=== PATIENT | female | born 1955 | race Caucasian/White ===

== ENCOUNTER 2017-11-15 10:21 | Emergency (ER) | payer BC ==
[2017-11-15 11:06] VITALS: BP 140/87
--- NOTE | 2017-11-15 11:40 | RAD ---
HISTORY: RIGHT FOOT PAIN COMPARISONS: None VIEWS: 3, Frontal, lateral, and oblique views of the right foot FINDINGS: BONE DENSITY: Normal. BONES: There is no displaced fracture. There are plantar and posterior calcaneal enthesophytes. 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 ALIGNMENT: There is no dislocation. SOFT TISSUES: Unremarkable. OTHER FINDINGS: None. IMPRESSION: DEGENERATIVE CHANGES. NO ACUTE OSSEOUS INJURY. IF SYMPTOMS PERSIST, RECOMMEND REPEAT IMAGING.
--- NOTE | 2017-11-15 11:58 | UC ---
Lower Extremity/Ankle HPI - HPI Summary HPI Summary: RIGHT FOOT PAIN X 3 DAYS LOCATED ON TOP THE RIGHT FOOT, NO KNOWN INJURY PAIN IS SHARP , 6 OUT OF 10 , NO RADIATION , WORSE WITH WALKING, BETTER WITH REST + SWELLING, NO REDNESS, - History of Current Complaint Chief Complaint: UCLowerExtremity Stated Complaint: RIGHT FOOT PAIN Time Seen by Provider: 11/15/17 11:08 Hx Obtained From: Patient Onset/Duration: Gradual Onset, Lasting Days - 3, Still Present Severity Initially: Moderate Severity Currently: Moderate Pain Intensity: 6 Aggravating Factor(s): Standing, Ambulation Alleviating Factor(s): Rest, Elevation, Ice Able to Bear Weight: Yes - Allergies/Home Medications Allergies/Adverse Reactions: Allergies Allergy/AdvReac Type Severity Reaction Status Date / Time ibuprofen Allergy Severe Rash Verified 11/15/17 10:50 Home Medications: Home Medications Acetaminophen [Tylenol Extra Strength] 2 tab BID 11/15/17 [History Confirmed ] Folic Acid TAB* [Folvite TAB*] 1 tab DAILY 11/15/17 [History Confirmed 11/15/17] Hydroxychloroquine TAB* [Plaquenil TAB*] 2 tab DAILY 11/15/17 [History Confirmed 11/15/17] Insulin GLARGINE(*) [Lantus(*)] 20 units QAM 11/15/17 [History Confirmed ] Liraglutide [Victoza 3-Sanjeev] 1.8 mg INJ DAILY 11/15/17 [History Confirmed ] Lisinopril/HCTZ (NF) [Zestoretic (NF)] 1 tab DAILY 11/15/17 [History Confirmed 11/15/17] Methotrexate TAB* 6 tab WEEKLY 11/15/17 [History Confirmed 11/15/17] Simvastatin [Zocor] 40 mg QPM 11/15/17 [History Confirmed 11/15/17] Tocilizumab [Actemra] 1 syr WEEKLY 11/15/17 [History Confirmed 11/15/17] metFORMIN* [Glucophage 500 MG TAB *] 2 tab BID 11/15/17 [History Confirmed 11/15] predniSONE TAB* [Deltasone 1 MG TAB*] 2 mg QPM 11/15/17 [History Confirmed 11/15] PMH/Surg Hx/FS Hx/Imm Hx Endocrine History: Diabetes Cardiovascular History: Cardiac Disease - Surgical History Surgical History: Yes Surgery Procedure, Year, and Place: BILAT HIP REPLACEMENT - Family History Known Family History: Positive: Hypertension, Diabetes - Social History Alcohol Use: None Substance Use Type: None Smoking Status (MU): Never Smoked Tobacco - Immunization History Most Recent Tetanus Shot: utd Review of Systems Constitutional: Negative Skin: Negative Eyes: Negative ENT: Negative Respiratory: Negative Cardiovascular: Negative Gastrointestinal: Negative Is Patient Immunocompromised?: No All Other Systems Reviewed And Are Negative: Yes Physical Exam Triage Information Reviewed: Yes Appearance: Well-Nourished, Pain Distress, Obese Vital Signs: Initial Vital Signs Temp 97.5 F 11/15/17 10:58 Pulse 89 11/15/17 10:58 Resp 16 11/15/17 10:58 BP 140/87 11/15/17 10:58 Pulse Ox 99 11/15/17 10:58 Vital Signs Reviewed: Yes Eye Exam: Normal Eyes: Positive: Conjunctiva Clear ENT: Positive: Normal ENT inspection, Hearing grossly normal, Pharynx normal, Pharyngeal erythema Neck: Positive: Supple, Nontender, No Lymphadenopathy Respiratory: Positive: Chest non-tender, Lungs clear, Normal breath sounds Cardiovascular: Positive: RRR, No Murmur, Pulses Normal Musculoskeletal: Positive: Other: - RIGHT FOOT: + SWELLING DORSAL FOOT 2,3,4 METATARSALS , NO ERYTHEMA, + TENDERNESS Diagnostics - Laboratory Diagnostic Studies Completed/Ordered: RIGHT FOOT XRAY : IMPRESSION: DEGENERATIVE CHANGES. NO ACUTE OSSEOUS INJURY. IF SYMPTOMS PERSIST, RECOMMEND REPEAT. IMAGING. Lower Extremity Course/Dx - Differential Dx/Diagnosis Provider Diagnoses: METATARSALGIA RIGHT FOOT Discharge - Sign-Out/Discharge Documenting (check all that apply): Patient Departure All imaging exams completed and their final reports reviewed: Yes - Discharge Plan Condition: Stable Disposition: HOME Patient Education Materials: Metatarsalgia (DC) Referrals: No Primary Care Phys,NOPCP [Primary Care Provider] - 7 Days - Billing Disposition and Condition Condition: STABLE Disposition: Home
== END 2017-11-15 11:59 | disposition home or self-care (01) ==
LOC: UCCORT 10:21
DX: M19.071 Primary osteoarthritis, right ankle and foot (principal); E11.9 Type 2 diabetes mellitus without complications; Z79.84 Long term (current) use of oral hypoglycemic drugs; Z88.6 Allergy status to analgesic agent
CPT/HCPCS: 99203; G0463